=== PATIENT | female | born 1960 | race Two or more races ===

== ENCOUNTER 2018-01-01 13:20 | Outpatient (CLI) | payer OTHER | END 2018-01-01 23:59 | disposition home or self-care (01) | LOC: LAB 13:20 | DX: N39.0 Urinary tract infection, site not specified (principal) | CPT/HCPCS: 87077; 87086 ==

== ENCOUNTER 2018-06-22 17:11 | Emergency (ER) | payer BC, OTHER ==
[~2018-06-22] VITALS: Ht 154.9 cm; Wt 65.8 kg
[2018-06-22] MEDS ORDERED: IBUPROFEN 600 MG TABLET PO ONE (17:30)
[2018-06-22] MEDS ORDERED: IBUPROFEN 600 MG TABLET ONE (18:04)
--- NOTE | 2018-06-22 18:08 | NUR ---
Patient discharged to home in stable conditon. Written and verbal after care instructions given to patient. Patient verbalizes understanding of instructions.
== END 2018-06-22 18:09 | disposition home or self-care (01) ==
LOC: ER 17:13
DX: M79.644 Pain in right finger(s) (principal)
CPT/HCPCS: A4663

== ENCOUNTER 2019-02-11 10:20 | Day surgery (SDC) | payer BC, OTHER ==
[2019-02-11 11:14] LABS: BASOPHILS % (AUTO) 0.5 % (0.0-2.0); EOSINOPHILS % (AUTO) 0.6 % (0.0-7.0); HEMATOCRIT 45.1 % (31.2-41.9); LYMPHOCYTES # (AUTO) 1.5 K/uL (20.0-40.0); LYMPHOCYTES % (AUTO) 24.2 % (20.5-51.5); MEAN CORPUSCULAR HEMOGLOBIN 29.4 uug (24.7-32.8); MEAN CORPUSCULAR HGB CONC 33 g/dL (32.3-35.6); MEAN CORPUSCULAR VOLUME 88.4 fL (75.5-95.3); MONOCYTES # (AUTO) 0.5 K/uL (2.0-10.0); NEUTROPHILS # (AUTO) 4.3 K/uL (1.8-8.9); NEUTROPHILS % (AUTO) 66.7 % (38.5-71.5); PLATELET COUNT (AUTO) 201 K/uL (179-408); WHITE BLOOD COUNT (AUTO) 6.4 K/uL (3.8-11.8)
[2019-02-11 11:16] LABS: *BLOOD, URINE NEGATIVE (NEGATIVE); *CLARITY,URINE CLOUDY (CLEAR); *KETONES,URINE TRACE (NEGATIVE); *UROBILINOGEN,URINE 0.2 E.U./dl (NORMAL); LEUKOCYTE ESTERASE ,URINE 1+ (NEGATIVE); NITRITE, URINE NEGATIVE (NEGATIVE); PH,URINE 5.5 (5.0-8.0); UGLUCOSE NEGATIVE (NEGATIVE)
[2019-02-11 11:23] LABS: *COLOR,URINE DARK YELLOW (YELLOW); CREATININE 0.6 mg/dL (0.6-1.3); POTASSIUM 4.3 mmol/L (3.5-5.1)
[2019-02-11 11:24] LABS: *BILIRUBIN,URIN 1+ (NEGATIVE)
[2019-02-11 11:29] LABS: BILIRUBIN,TOTAL 0.7 mg/dL (0.2-1.0); TOTAL PROTEIN, SERUM 7.3 g/dL (6.4-8.2)
[2019-02-11 11:32] LABS: BACTERIA,URINE NONE SEEN /HPF (NONE SEEN); SQUAMOUS EPITHELIAL CELL,UR MODERATE /HPF (NONE SEEN)
[2019-02-11 11:33] LABS: MUCUS,URINE MODERATE /LPF (0-FEW)
[2019-02-11] MEDS ORDERED: FENTANYL CITRATE 100 MCG/2 ML AMPUL ONE (12:05)
[2019-02-11] MEDS ORDERED: ATROPINE SULFATE 1 MG/ML VIAL IV ONE (13:15)
[2019-02-11] MEDS ORDERED: IV LACTATED RINGERS SOLUTION 1,000 ML BAG MC ONE (13:15)
[2019-02-11] MEDS ORDERED: PROPOFOL 200 MG/20 ML BOTTLE IV ONE (13:15)
[2019-02-11] MEDS ORDERED: LIDOCAINE-MPF 2% 5 ML VIAL MC ONE (13:15)
[2019-02-11] MEDS ORDERED: IRR STERIL WATER FOR IRR 1000 ML BOTTLE IR ONE (13:15)
== END 2019-02-11 14:31 | disposition home or self-care (01) ==
LOC: DS 10:20
PROVIDERS: ATTEND Internal Medicine Gastroenterology
DX: Z12.11 Encounter for screening for malignant neoplasm of colon (principal); D12.2 Benign neoplasm of ascending colon; K64.8 Other hemorrhoids; M81.0 Age-related osteoporosis without current pathological fracture; M19.90 Unspecified osteoarthritis, unspecified site
CPT/HCPCS: 36415; 45388; 71045; 80053; 81000; 81001; 85025; 85730; 87077; 87086; 88305; 93005; J3010; J3490; J7120 ×2; A4217; A4663; J0461